=== PATIENT | male | born 1950 | race Caucasian/White ===

== ENCOUNTER 2023-06-16 11:55 | Emergency (ER) | payer MEDICARE, BC ==
[2023-06-16] MEDS ORDERED: Sodium Chloride 0.9% 10 ML Syringe FLUSH PRN (12:36)
[2023-06-16 13:32] LABS: CORONAVIRUS COVID-19 NAA NEGATIVE (NEGATIVE); INFLUENZA A NAA NEGATIVE (NEGATIVE); RESPIRATORY SYNCYTIAL VIR NAA NEGATIVE (NEGATIVE)
[2023-06-16 14:09] LABS: INR 1.42; PROTHROMBIN TIME 14.8 SECONDS (9.7-12.0)
[2023-06-16 14:14] LABS: D-DIMER QUANTITATIVE 4.1 mg/L (0.19-0.50)
[2023-06-16] MEDS ORDERED: Iopamidol 755 Mg/ML 100 ML Bottle IVPUSH ONE (14:19)
[2023-06-16] MEDS ORDERED: Sodium Chloride 0.9% 100 ML IV SCH (14:30)
[2023-06-16] MEDS ORDERED: Furosemide 40 MG/4 ML VIAL IVPUSH ONE (18:43)
[2023-06-16 19:24] VITALS: PULSE 82
[2023-06-16 20:14] VITALS: BP 150/57
== END 2023-06-16 20:05 | disposition home or self-care (01) ==
LOC: JD.ED 11:55
DX: D69.6 Thrombocytopenia, unspecified (principal); D70.9 Neutropenia, unspecified; D64.9 Anemia, unspecified; I11.0 Hypertensive heart disease with heart failure; I50.9 Heart failure, unspecified; Z88.5 Allergy status to narcotic agent; Z79.899 Other long term (current) drug therapy; Z20.822 Contact with and (suspected) exposure to COVID-19
CPT/HCPCS: 0241U; 36415; 71275; 83880; 84484; 85379; 85610; 93005; 96374; 99285; J1940; J3490; Q9967; 93010; 99284

== ENCOUNTER 2023-11-01 09:07 | Emergency (ER) | payer MEDICARE, BC ==
[2023-11-01 10:17] LABS: BASOPHILS PERCENT AUTO 1.3 % (0.0-1.0); EOSINOPHILS ABSOLUTE AUTO 0.2 K/mm3 (0.0-0.4); EOSINOPHILS PERCENT AUTO 6.8 % (0.0-6.0); HEMATOCRIT 20.5 % (42.0-52.0); LYMPHOCYTES ABSOLUTE AUTO 0.9 K/mm3 (1.0-4.8); LYMPHOCYTES PERCENT AUTO 38.8 % (24.0-44.0); MEAN CORPUSCULAR HEMOGLOBIN 44.4 pg (28.0-32.0); MEAN CORPUSCULAR HGB CONC 35.1 g/dl (32.0-36.0); MEAN CORPUSCULAR VOLUME 126.5 fl (83.0-99.0); MEAN PLATELET VOLUME 9.8 fl (9.4-12.4); MONOCYTES ABSOLUTE AUTO 0.3 K/mm3 (0.0-0.8); MONOCYTES PERCENT AUTO 12.7 % (0.0-8.0); NEUTROPHILS PERCENT AUTO 40.4 % (41.0-71.0); PLATELET COUNT,PLT 82 K/mm3 (150-400); RED BLOOD CELL COUNT 1.62 M/mm3 (4.52-5.90)
[2023-11-01 10:22] LABS: HEMOGLOBIN 7.2 gm/dl (14.0-18.0)
[2023-11-01 10:23] LABS: WHITE BLOOD CELL COUNT,WBC 2.37 K/mm3 (3.9-11.3)
[2023-11-01 10:33] LABS: INR 1.2; PROTHROMBIN TIME 12.7 SECONDS (9.7-12.0)
[2023-11-01 10:35] LABS: PTT,PARTIAL THROMBOPLSTIN TIME 32.5 SECONDS (21.7-31.4)
[2023-11-01 10:37] LABS: A/G RATIO 0.7 (1-2); ALBUMIN 2.9 g/dl (3.4-5.0); ANION GAP 17.4 (5-15); BILIRUBIN TOTAL 3.5 mg/dL (0.2-1.0); BUN/CREATININE RATIO 20.6 (14-18); CREATININE 1.6 mg/dL (0.7-1.3); EST CRCL DRUG DOSING (CG) 44.45 mL/min; POTASSIUM,K 4.4 mEq/L (3.5-5.1); PROTEIN TOTAL,TP 6.9 g/dl (6.4-8.2)
[2023-11-01 10:55] LABS: SLIDE REVIEW ABNORMAL SMEAR
[2023-11-01] MEDS: Cyanocobalamin (Vitamin B12) 1,000 MCG/ML SDV IM ONE (11:07)
[2023-11-01] MEDS: Cyanocobalamin (Vitamin B12) 1,000 MCG/ML SDV SUBCUT ONE (11:07)
[2023-11-01 12:29] VITALS: BP 121/53; PULSE 62
== END 2023-11-01 12:19 | disposition home or self-care (01) ==
LOC: JD.ED 09:07
DX: R04.0 Epistaxis (principal); D61.818 Other pancytopenia; I10 Essential (primary) hypertension; Z88.5 Allergy status to narcotic agent; Z79.899 Other long term (current) drug therapy; Z79.82 Long term (current) use of aspirin; Z90.49 Acquired absence of other specified parts of digestive tract
CPT/HCPCS: 36415; 80053; 82607; 85025; 85610; 85730; 96372; 99283; J3420

== ENCOUNTER 2023-11-10 05:37 | Emergency (ER) | payer MEDICARE, BC ==
[2023-11-10 05:44] VITALS: BP 125/78; PULSE 68
== END 2023-11-10 06:46 | disposition home or self-care (01) ==
LOC: JD.ED 05:37
DX: R04.0 Epistaxis (principal); I10 Essential (primary) hypertension; Z88.5 Allergy status to narcotic agent; Z79.82 Long term (current) use of aspirin; Z79.899 Other long term (current) drug therapy; Z90.49 Acquired absence of other specified parts of digestive tract
CPT/HCPCS: 30901; 99283; 99283-25

== ENCOUNTER 2025-02-25 11:54 | Inpatient (IN) | payer MEDICARE, BC ==
[2025-02-25 13:39] LABS: BASOPHILS ABSOLUTE AUTO 0.0 K/mm3 (0.0-0.2); BASOPHILS PERCENT AUTO 0.3 % (0.0-1.0); EOSINOPHILS ABSOLUTE AUTO 0.0 K/mm3 (0.0-0.4); EOSINOPHILS PERCENT AUTO 0.6 % (0.0-6.0); IMMATURE GRAN ABSOLUTE AUTO 0.05 K/mm3 (0.00-0.05); IMMATURE GRAN PERCENT AUTO 0.7 % (0.0-0.4); LYMPHOCYTES ABSOLUTE AUTO 0.7 K/mm3 (1.0-4.8); LYMPHOCYTES PERCENT AUTO 9.2 % (24.0-44.0); MEAN PLATELET VOLUME 11.0 fl (9.4-12.4); MONOCYTES ABSOLUTE AUTO 0.5 K/mm3 (0.0-0.8); MONOCYTES PERCENT AUTO 7.3 % (0.0-8.0); NEUTROPHILS ABSOLUTE AUTO 5.9 K/mm3 (1.8-7.7); NEUTROPHILS PERCENT AUTO 81.9 % (41.0-71.0); NRBC ABSOLUTE 0.00 (0.00-0.02); NRBC PERCENT 0.0 % (0.0-0.2); PLATELET COUNT,PLT 55 K/mm3 (150-400); RED BLOOD CELL COUNT 2.02 M/mm3 (4.52-5.90); WHITE BLOOD CELL COUNT,WBC 7.17 K/mm3 (3.9-11.3)
[2025-02-25 14:00] LABS: LACTIC ACID 2.7 mmol/L (0.4-2.0)
[2025-02-25 14:02] LABS: A/G RATIO 0.5 (1-2); ALANINE AMINOTRANSFERASE,ALT 17.0 U/L (16-63); ASPARTATE AMNIOTRANSFERASE,AST 37.0 U/L (15-37); BILIRUBIN TOTAL 8.7 mg/dL (0.2-1.0); BLOOD UREA NITROGEN,BUN 36.0 mg/dL (7-18); CARBON DIOXIDE,CO2 21.0 mEq/L (21-32); CHLORIDE,CL 101.0 mEq/L (98-107); CREATININE 1.6 mg/dL (0.7-1.3); EST CRCL DRUG DOSING (CG) 41.12 mL/min; ESTIMATED GFR 45.0 mL/min (>60); GLUCOSE RANDOM 103.0 mg/dL (70-99); PROTEIN TOTAL,TP 6.1 g/dl (6.4-8.2); SODIUM,NA 133.0 mEq/L (136-145)
[2025-02-25 14:03] LABS: POTASSIUM,K 4.8 mEq/L (3.5-5.1)
[2025-02-25] MEDS: Furosemide 40 MG/4 ML VIAL IVPUSH ONE (15:28)
[2025-02-25] MEDS: Sodium Chloride 0.9% 10 ML Syringe FLUSH PRN (15:28)
[2025-02-25 16:16] LABS: APPEARANCE,URINE CLEAR (Clear); GLUCOSE,URINE NEGATIVE (Negative); OCCULT BLOOD,URINE NEGATIVE (Negative)
[2025-02-25 16:31] LABS: EPITHELIAL CELLS,URINE 0-5 /hpf (0-5)
[2025-02-25] MEDS ORDERED: Ondansetron 4 MG/2 ML SDV IV PRN (17:51)
[2025-02-25 21:20] LABS: FOLIC ACID 40.4 ng/mL (8.6-58.9)
[2025-02-26] MEDS: Lactulose Soln 10 GM/15 ML 30 ML UD Cup PO SCH (05:01)
[2025-02-26 05:51] LABS: BASOPHILS ABSOLUTE AUTO 0.0 K/mm3 (0.0-0.2); BASOPHILS PERCENT AUTO 0.3 % (0.0-1.0); EOSINOPHILS ABSOLUTE AUTO 0.1 K/mm3 (0.0-0.4); EOSINOPHILS PERCENT AUTO 1.5 % (0.0-6.0); IMMATURE GRAN ABSOLUTE AUTO 0.03 K/mm3 (0.00-0.05); IMMATURE GRAN PERCENT AUTO 0.5 % (0.0-0.4); LYMPHOCYTES ABSOLUTE AUTO 0.7 K/mm3 (1.0-4.8); LYMPHOCYTES PERCENT AUTO 11.5 % (24.0-44.0); MEAN PLATELET VOLUME 11.0 fl (9.4-12.4); MONOCYTES ABSOLUTE AUTO 0.5 K/mm3 (0.0-0.8); MONOCYTES PERCENT AUTO 8.4 % (0.0-8.0); NEUTROPHILS ABSOLUTE AUTO 4.8 K/mm3 (1.8-7.7); NEUTROPHILS PERCENT AUTO 77.8 % (41.0-71.0); NRBC ABSOLUTE 0.00 (0.00-0.02); NRBC PERCENT 0.0 % (0.0-0.2); PLATELET COUNT,PLT 46 K/mm3 (150-400); RED BLOOD CELL COUNT 1.50 M/mm3 (4.52-5.90); WHITE BLOOD CELL COUNT,WBC 6.17 K/mm3 (3.9-11.3)
[2025-02-26 06:08] LABS: A/G RATIO 0.5 (1-2); ALANINE AMINOTRANSFERASE,ALT 10.0 U/L (16-63); ASPARTATE AMNIOTRANSFERASE,AST 23.0 U/L (15-37); BILIRUBIN TOTAL 6.6 mg/dL (0.2-1.0); BLOOD UREA NITROGEN,BUN 32.0 mg/dL (7-18); CARBON DIOXIDE,CO2 20.0 mEq/L (21-32); CREATININE 1.5 mg/dL (0.7-1.3); EST CRCL DRUG DOSING (CG) 43.33 mL/min; ESTIMATED GFR 49.0 mL/min (>60); GLUCOSE RANDOM 88.0 mg/dL (70-99); PROTEIN TOTAL,TP 4.7 g/dl (6.4-8.2)
[2025-02-26 07:07] LABS: CHLORIDE,CL 107.0 mEq/L (98-107); POTASSIUM,K 4.2 mEq/L (3.5-5.1); SODIUM,NA 136.0 mEq/L (136-145)
[2025-02-26] MEDS: Metoprolol Tartrate 5 MG/5 ML SDV IVPUSH ONE ×3 (08:31→09:00)
[2025-02-26 08:36] LABS: INR 1.52
[2025-02-26 08:38] LABS: PTT,PARTIAL THROMBOPLSTIN TIME 48.0 SECONDS (21.7-31.4)
[2025-02-26 08:43] LABS: PHOSPHORUS 3.4 mg/dL (2.6-4.7)
[2025-02-26] MEDS ORDERED: SODIUM CHLORIDE 0.9% IV SCH (08:45)
[2025-02-26] MEDS ORDERED: PHENYLEPHRINE HCL IV SCH (08:45)
[2025-02-26 09:13] LABS: TSH 2.756 uIU/mL (0.358-3.74)
[2025-02-26] MEDS: Diltiazem 25 MG/5 ML SDV IVPUSH ONE ×2 (09:51→16:33)
[2025-02-26 14:12] LABS: IRON,FE 154 ug/dL (65-175); PERCENT FE SATURATION 105 % (20-55)
[2025-02-27 05:39] LABS: BASOPHILS ABSOLUTE AUTO 0.0 K/mm3 (0.0-0.2); BASOPHILS PERCENT AUTO 0.3 % (0.0-1.0); EOSINOPHILS ABSOLUTE AUTO 0.2 K/mm3 (0.0-0.4); EOSINOPHILS PERCENT AUTO 3.5 % (0.0-6.0); IMMATURE GRAN ABSOLUTE AUTO 0.02 K/mm3 (0.00-0.05); IMMATURE GRAN PERCENT AUTO 0.3 % (0.0-0.4); LYMPHOCYTES ABSOLUTE AUTO 0.7 K/mm3 (1.0-4.8); LYMPHOCYTES PERCENT AUTO 12.1 % (24.0-44.0); MEAN PLATELET VOLUME 10.6 fl (9.4-12.4); MONOCYTES ABSOLUTE AUTO 0.6 K/mm3 (0.0-0.8); MONOCYTES PERCENT AUTO 9.7 % (0.0-8.0); NEUTROPHILS ABSOLUTE AUTO 4.4 K/mm3 (1.8-7.7); NEUTROPHILS PERCENT AUTO 74.1 % (41.0-71.0); NRBC ABSOLUTE 0.00 (0.00-0.02); NRBC PERCENT 0.0 % (0.0-0.2); PLATELET COUNT,PLT 46 K/mm3 (150-400); RED BLOOD CELL COUNT 2.43 M/mm3 (4.52-5.90); WHITE BLOOD CELL COUNT,WBC 5.96 K/mm3 (3.9-11.3)
[2025-02-27 05:47] LABS: A/G RATIO 0.5 (1-2); ALANINE AMINOTRANSFERASE,ALT 13.0 U/L (16-63); ASPARTATE AMNIOTRANSFERASE,AST 26.0 U/L (15-37); BILIRUBIN TOTAL 7.6 mg/dL (0.2-1.0); BLOOD UREA NITROGEN,BUN 24.0 mg/dL (7-18); CARBON DIOXIDE,CO2 18.0 mEq/L (21-32); EST CRCL DRUG DOSING (CG) 54.38 mL/min; ESTIMATED GFR 64.0 mL/min (>60); GLUCOSE RANDOM 107.0 mg/dL (70-99)
[2025-02-27 07:11] LABS: CHLORIDE,CL 108.0 mEq/L (98-107); POTASSIUM,K 3.9 mEq/L (3.5-5.1); SODIUM,NA 136.0 mEq/L (136-145)
[2025-02-27] MEDS ORDERED: Non-Formulary Medication 1 Each (Pantoprazole Sodium 40 MG Tablet.Dr) PO SCH (09:00)
[2025-02-27 16:12] LABS: PROTEIN TOTAL,TP 5.1 g/dl (6.4-8.2)
[2025-02-27 16:13] LABS: CREATININE 1.2 mg/dL (0.7-1.3)
[2025-02-27] MEDS: Lactulose Soln 10 GM/15 ML 30 ML UD Cup PO SCH (20:01)
[2025-02-28 08:07] LABS: BASOPHILS ABSOLUTE AUTO 0.0 K/mm3 (0.0-0.2); BASOPHILS PERCENT AUTO 0.7 % (0.0-1.0); EOSINOPHILS ABSOLUTE AUTO 0.2 K/mm3 (0.0-0.4); EOSINOPHILS PERCENT AUTO 4.8 % (0.0-6.0); IMMATURE GRAN ABSOLUTE AUTO 0.01 K/mm3 (0.00-0.05); IMMATURE GRAN PERCENT AUTO 0.2 % (0.0-0.4); LYMPHOCYTES ABSOLUTE AUTO 0.8 K/mm3 (1.0-4.8); LYMPHOCYTES PERCENT AUTO 18.3 % (24.0-44.0); MEAN PLATELET VOLUME 11.0 fl (9.4-12.4); MONOCYTES ABSOLUTE AUTO 0.6 K/mm3 (0.0-0.8); MONOCYTES PERCENT AUTO 12.6 % (0.0-8.0); NEUTROPHILS ABSOLUTE AUTO 2.8 K/mm3 (1.8-7.7); NEUTROPHILS PERCENT AUTO 63.4 % (41.0-71.0); NRBC ABSOLUTE 0.00 (0.00-0.02); NRBC PERCENT 0.0 % (0.0-0.2); PLATELET COUNT,PLT 41 K/mm3 (150-400); RED BLOOD CELL COUNT 2.11 M/mm3 (4.52-5.90); WHITE BLOOD CELL COUNT,WBC 4.38 K/mm3 (3.9-11.3)
[2025-02-28 08:38] LABS: A/G RATIO 0.5 (1-2); ALANINE AMINOTRANSFERASE,ALT 11.0 U/L (16-63); ASPARTATE AMNIOTRANSFERASE,AST 29.0 U/L (15-37); BILIRUBIN TOTAL 4.9 mg/dL (0.2-1.0); BLOOD UREA NITROGEN,BUN 23.0 mg/dL (7-18); CARBON DIOXIDE,CO2 21.0 mEq/L (21-32); CHLORIDE,CL 105.0 mEq/L (98-107); EST CRCL DRUG DOSING (CG) 54.03 mL/min; ESTIMATED GFR 64.0 mL/min (>60); GLUCOSE RANDOM 89.0 mg/dL (70-99); POTASSIUM,K 4.5 mEq/L (3.5-5.1); SODIUM,NA 133.0 mEq/L (136-145)
[2025-02-28 09:11] LABS: CREATININE 1.2 mg/dL (0.7-1.3); PROTEIN TOTAL,TP 4.9 g/dl (6.4-8.2)
[2025-03-01 08:15] LABS: MEAN PLATELET VOLUME 10.9 fl (9.4-12.4); NRBC ABSOLUTE 0.00 (0.00-0.02); NRBC PERCENT 0.0 % (0.0-0.2); PLATELET COUNT,PLT 48 K/mm3 (150-400); RED BLOOD CELL COUNT 2.52 M/mm3 (4.52-5.90); WHITE BLOOD CELL COUNT,WBC 4.32 K/mm3 (3.9-11.3)
[2025-03-01 08:53] LABS: A/G RATIO 0.5 (1-2); ALANINE AMINOTRANSFERASE,ALT 13.0 U/L (16-63); ASPARTATE AMNIOTRANSFERASE,AST 30.0 U/L (15-37); BILIRUBIN TOTAL 3.2 mg/dL (0.2-1.0); BLOOD UREA NITROGEN,BUN 21.0 mg/dL (7-18); CARBON DIOXIDE,CO2 19.0 mEq/L (21-32); CHLORIDE,CL 106.0 mEq/L (98-107); CREATININE 1.4 mg/dL (0.7-1.3); EST CRCL DRUG DOSING (CG) 46.25 mL/min; ESTIMATED GFR 53.0 mL/min (>60); GLUCOSE RANDOM 101.0 mg/dL (70-99); POTASSIUM,K 4.6 mEq/L (3.5-5.1); PROTEIN TOTAL,TP 5.4 g/dl (6.4-8.2); SODIUM,NA 133.0 mEq/L (136-145)
[2025-03-02 04:39] LABS: MEAN PLATELET VOLUME 10.3 fl (9.4-12.4); NRBC ABSOLUTE 0.00 (0.00-0.02); NRBC PERCENT 0.0 % (0.0-0.2); PLATELET COUNT,PLT 42 K/mm3 (150-400); RED BLOOD CELL COUNT 2.32 M/mm3 (4.52-5.90); WHITE BLOOD CELL COUNT,WBC 3.84 K/mm3 (3.9-11.3)
[2025-03-02 05:06] LABS: A/G RATIO 0.5 (1-2); ALANINE AMINOTRANSFERASE,ALT 12.0 U/L (16-63); ASPARTATE AMNIOTRANSFERASE,AST 30.0 U/L (15-37); BILIRUBIN TOTAL 2.9 mg/dL (0.2-1.0); BLOOD UREA NITROGEN,BUN 22.0 mg/dL (7-18); CARBON DIOXIDE,CO2 22.0 mEq/L (21-32); CHLORIDE,CL 105.0 mEq/L (98-107); CREATININE 1.2 mg/dL (0.7-1.3); EST CRCL DRUG DOSING (CG) 53.96 mL/min; ESTIMATED GFR 64.0 mL/min (>60); GLUCOSE RANDOM 97.0 mg/dL (70-99); POTASSIUM,K 4.9 mEq/L (3.5-5.1); PROTEIN TOTAL,TP 5.1 g/dl (6.4-8.2); SODIUM,NA 132.0 mEq/L (136-145)
[2025-03-03 04:46] LABS: MEAN PLATELET VOLUME 10.9 fl (9.4-12.4); NRBC ABSOLUTE 0.00 (0.00-0.02); NRBC PERCENT 0.0 % (0.0-0.2); PLATELET COUNT,PLT 44 K/mm3 (150-400); RED BLOOD CELL COUNT 2.31 M/mm3 (4.52-5.90); WHITE BLOOD CELL COUNT,WBC 3.59 K/mm3 (3.9-11.3)
[2025-03-03 05:15] LABS: A/G RATIO 0.5 (1-2); ASPARTATE AMNIOTRANSFERASE,AST 29.0 U/L (15-37); BILIRUBIN TOTAL 2.6 mg/dL (0.2-1.0); BLOOD UREA NITROGEN,BUN 25.0 mg/dL (7-18); CARBON DIOXIDE,CO2 22.0 mEq/L (21-32); CHLORIDE,CL 104.0 mEq/L (98-107); CREATININE 1.3 mg/dL (0.7-1.3); EST CRCL DRUG DOSING (CG) 48.51 mL/min; ESTIMATED GFR 58.0 mL/min (>60); GLUCOSE RANDOM 99.0 mg/dL (70-99); POTASSIUM,K 4.9 mEq/L (3.5-5.1); PROTEIN TOTAL,TP 5.1 g/dl (6.4-8.2); SODIUM,NA 133.0 mEq/L (136-145)
[2025-03-03 05:41] LABS: ALANINE AMINOTRANSFERASE,ALT 14.0 U/L (16-63)
[2025-03-04 05:28] LABS: MEAN PLATELET VOLUME 11.2 fl (9.4-12.4); NRBC ABSOLUTE 0.00 (0.00-0.02); NRBC PERCENT 0.0 % (0.0-0.2); PLATELET COUNT,PLT 47 K/mm3 (150-400); RED BLOOD CELL COUNT 2.23 M/mm3 (4.52-5.90); WHITE BLOOD CELL COUNT,WBC 3.81 K/mm3 (3.9-11.3)
[2025-03-04 05:59] LABS: A/G RATIO 0.4 (1-2); ALANINE AMINOTRANSFERASE,ALT 13.0 U/L (16-63); ASPARTATE AMNIOTRANSFERASE,AST 29.0 U/L (15-37); BILIRUBIN TOTAL 3.7 mg/dL (0.2-1.0); BLOOD UREA NITROGEN,BUN 31.0 mg/dL (7-18); CARBON DIOXIDE,CO2 23.0 mEq/L (21-32); CHLORIDE,CL 102.0 mEq/L (98-107); CREATININE 1.2 mg/dL (0.7-1.3); EST CRCL DRUG DOSING (CG) 53.11 mL/min; ESTIMATED GFR 64.0 mL/min (>60); GLUCOSE RANDOM 92.0 mg/dL (70-99); POTASSIUM,K 5.9 mEq/L (3.5-5.1); PROTEIN TOTAL,TP 5.3 g/dl (6.4-8.2); SODIUM,NA 131.0 mEq/L (136-145)
[2025-03-04] MEDS: Calcium Gluconate 10% 1 GM/10 ML SDV IV ONE (11:32)
[2025-03-04] MEDS: 50% Dextrose in Water 50 ML Syringe IVPUSH ONE (11:34)
[2025-03-04] MEDS: Insulin Regular, Human 100 Units/ML 10 ML Vial IV ONE (11:37)
[2025-03-05 06:17] LABS: A/G RATIO 0.4 (1-2); ALANINE AMINOTRANSFERASE,ALT 12.0 U/L (16-63); ASPARTATE AMNIOTRANSFERASE,AST 25.0 U/L (15-37); BILIRUBIN TOTAL 2.3 mg/dL (0.2-1.0); BLOOD UREA NITROGEN,BUN 35.0 mg/dL (7-18); CARBON DIOXIDE,CO2 24.0 mEq/L (21-32); CHLORIDE,CL 102.0 mEq/L (98-107); CREATININE 1.4 mg/dL (0.7-1.3); EST CRCL DRUG DOSING (CG) 45.53 mL/min; ESTIMATED GFR 53.0 mL/min (>60); GLUCOSE RANDOM 108.0 mg/dL (70-99); PHOSPHORUS 4.1 mg/dL (2.6-4.7); POTASSIUM,K 5.3 mEq/L (3.5-5.1); PROTEIN TOTAL,TP 5.2 g/dl (6.4-8.2); SODIUM,NA 134.0 mEq/L (136-145)
[2025-03-05] MEDS: 50% Dextrose in Water 50 ML Syringe IVPUSH ONE (12:10)
[2025-03-05] MEDS: Insulin Regular, Human 100 Units/ML 10 ML Vial IV ONE (12:13)
[2025-03-06 06:43] LABS: A/G RATIO 0.5 (1-2); ALANINE AMINOTRANSFERASE,ALT 16.0 U/L (16-63); ASPARTATE AMNIOTRANSFERASE,AST 28.0 U/L (15-37); BILIRUBIN TOTAL 2.7 mg/dL (0.2-1.0); BLOOD UREA NITROGEN,BUN 49.0 mg/dL (7-18); CARBON DIOXIDE,CO2 24.0 mEq/L (21-32); CHLORIDE,CL 102.0 mEq/L (98-107); CREATININE 1.7 mg/dL (0.7-1.3); EST CRCL DRUG DOSING (CG) 36.72 mL/min; ESTIMATED GFR 42.0 mL/min (>60); GLUCOSE RANDOM 100.0 mg/dL (70-99); PROTEIN TOTAL,TP 5.4 g/dl (6.4-8.2); SODIUM,NA 131.0 mEq/L (136-145)
[2025-03-06 06:55] LABS: POTASSIUM,K 6.2 mEq/L (3.5-5.1)
[2025-03-06] MEDS: 50% Dextrose in Water 50 ML Syringe IVPUSH PRN ×2 (07:13→10:11)
[2025-03-06] MEDS: Insulin Regular, Human 100 Units/ML 10 ML Vial IV ONE ×4 (07:13→22:05)
[2025-03-06] MEDS: 50% Dextrose in Water 50 ML Syringe ONE (07:56)
[2025-03-06 09:41] LABS: BLOOD UREA NITROGEN,BUN 47.0 mg/dL (7-18); CARBON DIOXIDE,CO2 24.0 mEq/L (21-32); CHLORIDE,CL 102.0 mEq/L (98-107); CREATININE 1.5 mg/dL (0.7-1.3); EST CRCL DRUG DOSING (CG) 41.62 mL/min; ESTIMATED GFR 49.0 mL/min (>60); GLUCOSE RANDOM 117.0 mg/dL (70-99); POTASSIUM,K 5.7 mEq/L (3.5-5.1); SODIUM,NA 131.0 mEq/L (136-145)
[2025-03-06] MEDS: Hydrocortisone Sodium Succinate 100 MG/2 ML SDV IVPUSH ONE (22:05)
[2025-03-06] MEDS: 50% Dextrose in Water 50 ML Syringe IVPUSH ONE (22:15)
[2025-03-07] MEDS: Hydrocortisone Sodium Succinate 100 MG/2 ML SDV IVPUSH SCH ×2 (03:41→17:08)
[2025-03-07 08:44] LABS: BLOOD UREA NITROGEN,BUN 51.0 mg/dL (7-18); CARBON DIOXIDE,CO2 22.0 mEq/L (21-32); CHLORIDE,CL 104.0 mEq/L (98-107); CREATININE 1.8 mg/dL (0.7-1.3); EST CRCL DRUG DOSING (CG) 34.47 mL/min; ESTIMATED GFR 39.0 mL/min (>60); GLUCOSE RANDOM 121.0 mg/dL (70-99); SODIUM,NA 133.0 mEq/L (136-145)
[2025-03-07 08:47] LABS: POTASSIUM,K 6.8 mEq/L (3.5-5.1)
[2025-03-07] MEDS: 50% Dextrose in Water 50 ML Syringe IVPUSH ONE ×3 (10:10→19:49)
[2025-03-07] MEDS: Calcium Gluconate 10% 1 GM/10 ML SDV IVPUSH ONE (10:10)
[2025-03-07] MEDS: Insulin Regular, Human 100 Units/ML 10 ML Vial IV ONE ×3 (10:10→19:49)
[2025-03-07] MEDS: Albumin 25% 12.5 GM/50 ML BAG IV SCH (17:08)
[2025-03-07] MEDS: Octreotide 100 MCG/ML SDV SUBCUT SCH (17:11)
[2025-03-07 22:30] LABS: APPEARANCE,URINE CLEAR (Clear); GLUCOSE,URINE NEGATIVE (Negative); OCCULT BLOOD,URINE NEGATIVE (Negative)
[2025-03-07 23:04] LABS: EPITHELIAL CELLS,URINE 0-5 /hpf (0-5)
[2025-03-08 04:49] LABS: BASOPHILS ABSOLUTE AUTO 0.0 K/mm3 (0.0-0.2); BASOPHILS PERCENT AUTO 0.2 % (0.0-1.0); EOSINOPHILS ABSOLUTE AUTO 0.0 K/mm3 (0.0-0.4); EOSINOPHILS PERCENT AUTO 0.0 % (0.0-6.0); IMMATURE GRAN ABSOLUTE AUTO 0.05 K/mm3 (0.00-0.05); IMMATURE GRAN PERCENT AUTO 1.0 % (0.0-0.4); LYMPHOCYTES ABSOLUTE AUTO 0.5 K/mm3 (1.0-4.8); LYMPHOCYTES PERCENT AUTO 9.6 % (24.0-44.0); MEAN PLATELET VOLUME 11.5 fl (9.4-12.4); MONOCYTES ABSOLUTE AUTO 0.3 K/mm3 (0.0-0.8); MONOCYTES PERCENT AUTO 6.9 % (0.0-8.0); NEUTROPHILS ABSOLUTE AUTO 4.1 K/mm3 (1.8-7.7); NEUTROPHILS PERCENT AUTO 82.3 % (41.0-71.0); NRBC ABSOLUTE 0.00 (0.00-0.02); NRBC PERCENT 0.0 % (0.0-0.2); PLATELET COUNT,PLT 50 K/mm3 (150-400); RED BLOOD CELL COUNT 1.84 M/mm3 (4.52-5.90); WHITE BLOOD CELL COUNT,WBC 4.92 K/mm3 (3.9-11.3)
[2025-03-08 05:17] LABS: A/G RATIO 0.7 (1-2); ALANINE AMINOTRANSFERASE,ALT 14.0 U/L (16-63); ASPARTATE AMNIOTRANSFERASE,AST 24.0 U/L (15-37); BILIRUBIN TOTAL 2.1 mg/dL (0.2-1.0); BLOOD UREA NITROGEN,BUN 61.0 mg/dL (7-18); CARBON DIOXIDE,CO2 22.0 mEq/L (21-32); CHLORIDE,CL 100.0 mEq/L (98-107); CREATININE 1.9 mg/dL (0.7-1.3); ESTIMATED GFR 37.0 mL/min (>60); GLUCOSE RANDOM 117.0 mg/dL (70-99); POTASSIUM,K 5.6 mEq/L (3.5-5.1); PROTEIN TOTAL,TP 5.8 g/dl (6.4-8.2); SODIUM,NA 132.0 mEq/L (136-145)
[2025-03-08 05:33] LABS: EST CRCL DRUG DOSING (CG) 33.75 mL/min
[2025-03-08] MEDS: 50% Dextrose in Water 50 ML Syringe IVPUSH ONE (08:06)
[2025-03-08] MEDS: Insulin Regular, Human 100 Units/ML 10 ML Vial IV ONE (08:07)
[2025-03-08] MEDS: Albumin 25% 12.5 GM/50 ML BAG IV SCH (12:34)
[2025-03-09 04:47] LABS: MEAN PLATELET VOLUME 10.5 fl (9.4-12.4); NRBC ABSOLUTE 0.00 (0.00-0.02); NRBC PERCENT 0.0 % (0.0-0.2); PLATELET COUNT,PLT 48 K/mm3 (150-400); RED BLOOD CELL COUNT 2.07 M/mm3 (4.52-5.90); WHITE BLOOD CELL COUNT,WBC 3.72 K/mm3 (3.9-11.3)
[2025-03-09 05:09] LABS: BLOOD UREA NITROGEN,BUN 63.0 mg/dL (7-18); CARBON DIOXIDE,CO2 27.0 mEq/L (21-32); CHLORIDE,CL 100.0 mEq/L (98-107); CREATININE 1.6 mg/dL (0.7-1.3); EST CRCL DRUG DOSING (CG) 40.52 mL/min; ESTIMATED GFR 45.0 mL/min (>60); GLUCOSE RANDOM 100.0 mg/dL (70-99); POTASSIUM,K 3.9 mEq/L (3.5-5.1); SODIUM,NA 135.0 mEq/L (136-145)
[2025-03-09 13:19] LABS: BLOOD UREA NITROGEN,BUN 68.0 mg/dL (7-18); CARBON DIOXIDE,CO2 25.0 mEq/L (21-32); CHLORIDE,CL 102.0 mEq/L (98-107); CREATININE 1.6 mg/dL (0.7-1.3); EST CRCL DRUG DOSING (CG) 40.52 mL/min; ESTIMATED GFR 45.0 mL/min (>60); GLUCOSE RANDOM 165.0 mg/dL (70-99); POTASSIUM,K 3.3 mEq/L (3.5-5.1); SODIUM,NA 137.0 mEq/L (136-145)
[2025-03-09] MEDS: Lactulose Soln 10 GM/15 ML 30 ML UD Cup PO SCH (14:42)
[2025-03-09 23:27] VITALS: BP 99/42; PULSE 59
[2025-03-10 04:46] LABS: ACTH <1.5 pg/mL (7.2-63.3)
[2025-03-11 18:43] LABS: A/RA RATIO CALCULATION 3.9 ratio (<=25.0); ALDOSTERONE 41.0 ng/dL; RENIN 10.6 ng/mL/hr
== END 2025-03-10 04:42 | disposition home health service (06) | DRG 682 ==
LOC: JD.ED 11:54 → JD.MS 17:51 → UNDOADMIN 17:51 → JD.MS 17:54 → UNDOADMIN 22:35 → JD.MS 22:35 → JD.ICU 02-26 08:11 → JD.MS 02-26 08:12 → JD.ICU 03-02 08:42 → JD.MS 03-02 08:48 → JD.ICU 03-05 17:32 → UNDOADMIN 03-08 17:51 → JD.MS 03-08 17:51 → JD.ICU 03-08 21:37 → JD.MS 03-08 21:37 → UNDOADMIN 03-08 21:37 → UNDODISIN 03-10 04:42
PROVIDERS: ADMIT Family Medicine; ATTEND Internal Medicine
PROC: 30233N1 Transfusion of Nonautologous Red Blood Cells into Peripheral Vein, Percutaneous Approach (ICD-10-PCS; 2025-02-26)
PROC: 3E03329 Introduction of Other Anti-infective into Peripheral Vein, Percutaneous Approach (ICD-10-PCS; 2025-02-26)
PROC: 3E033XZ Introduction of Vasopressor into Peripheral Vein, Percutaneous Approach (ICD-10-PCS; 2025-03-01)
PROC: 02HV33Z Insertion of Infusion Device into Superior Vena Cava, Percutaneous Approach (ICD-10-PCS; 2025-03-02)
PROC: 30233N1 Transfusion of Nonautologous Red Blood Cells into Peripheral Vein, Percutaneous Approach (ICD-10-PCS; principal; 2025-03-08)
DX: N17.9 Acute kidney failure, unspecified (principal); N18.9 Chronic kidney disease, unspecified; K76.7 Hepatorenal syndrome; I12.9 Hypertensive chronic kidney disease with stage 1 through stage 4 chronic kidney disease, or unspecified chronic kidney disease; E87.1 Hypo-osmolality and hyponatremia; Z79.899 Other long term (current) drug therapy; E87.20 Acidosis, unspecified; I13.0 Hypertensive heart and chronic kidney disease with heart failure and stage 1 through stage 4 chronic kidney disease, or unspecified chronic kidney disease; R78.81 Bacteremia; I48.91 Unspecified atrial fibrillation; D63.1 Anemia in chronic kidney disease; H91.90 Unspecified hearing loss, unspecified ear; H54.7 Unspecified visual loss; E86.0 Dehydration; E78.00 Pure hypercholesterolemia, unspecified; K76.82 Hepatic encephalopathy; N18.32 Chronic kidney disease, stage 3b; R94.5 Abnormal results of liver function studies; I50.9 Heart failure, unspecified; E05.90 Thyrotoxicosis, unspecified without thyrotoxic crisis or storm; F10.10 Alcohol abuse, uncomplicated; B95.5 Unspecified streptococcus as the cause of diseases classified elsewhere; E87.5 Hyperkalemia; I95.9 Hypotension, unspecified; E16.2 Hypoglycemia, unspecified; Z66 Do not resuscitate; D69.59 Other secondary thrombocytopenia; K70.31 Alcoholic cirrhosis of liver with ascites; Z88.8 Allergy status to other drugs, medicaments and biological substances; Z88.5 Allergy status to narcotic agent; Z90.49 Acquired absence of other specified parts of digestive tract; Z95.2 Presence of prosthetic heart valve
CPT/HCPCS: 36415 ×2; 36430; 71045; 80053 ×2; 81001; 82140; 82607; 82746; 82947 ×2; 83605 ×3; 83735 ×3; 83880; 84100; 84132 ×2; 84443; 84484 ×2; 85014 ×2; 85018 ×2; 85025 ×2; 86140; 86850; 86900; 86901; 86922; 87040 ×2; 87077; 87186; 93005 ×2; 96361; 96374; 97112; 97116 ×2; 99285; A9270 ×10; J0696; J1938; J2354 ×3; J7030 ×2; J7050; P9016; P9047 ×5; 36569; 80048; 82024; 82088; 82272; 82533; 82728; 83540; 84244; 84300; 84466; 85027; 85379; 85384; 85610; 85730; 87154; 87184; 93010; 93306; 97110-GP; 97161-GP; 97166-GO; 97530-GO; 97530-GP; 97535-GO; 99223; 99232; 99233; 99239; 99284; J0612; J1720; J1815-GY; J2470; J3490; S5010